=== PATIENT | male | born 1955 | race Caucasian/White ===

== ENCOUNTER 2018-07-20 18:31 | Emergency (ER) | payer MEDICARE, OTHER ==
[2018-07-20] MEDS: KETOROLAC 30 MG INJ IM (22:02)
[2018-07-20] MEDS: ONDANSETRON (ODT) 4 MG TAB ODT (22:02)
[2018-07-20 22:40] LABS: ADD UMIC YES; UR ASCORBIC ACID NEGATIVE (NEGATIVE); UR BILIRUBIN (Dip) NEGATIVE (NEGATIVE); UR BLOOD (Dip) 1+ mg/dL (NEGATIVE); UR CLARITY CLEAR (CLEAR); UR COLOR YELLOW (YELLOW); UR GLUCOSE (Dip) NEGATIVE (NEGATIVE); UR KETONES (Dip) NEGATIVE (NEGATIVE); UR LEUKOCYTE ESTERASE (Dip) NEGATIVE Leu/ul (NEGATIVE); UR MUCUS FEW /HPF (NONE SEEN); UR NITRITE (Dip) NEGATIVE (NEGATIVE); UR RBC 0 /HPF (0-5); UR SPECIFIC GRAVITY (Dip) 1.024 (1.003-1.030); UR TOTAL PROTEIN (Dip) NEGATIVE (NEGATIVE); UR UROBILINOGEN (Dip) 1+ mg/dL (NEGATIVE); UR WBC 1 /HPF (0-5)
== END 2018-07-21 01:24 | disposition left against medical advice (07) ==
LOC: FTE 07-21 01:24
DX: M54.5 Low back pain (principal); I10 Essential (primary) hypertension
CPT/HCPCS: 74018; 81001; 96372; 99284-25

== ENCOUNTER 2018-11-21 14:46 | Emergency (ER) | payer SELFPAY, OTHER, MEDICARE | END 2018-11-21 19:45 | disposition left against medical advice (07) | LOC: E/R 14:46 | DX: Z53.21 Procedure and treatment not carried out due to patient leaving prior to being seen by health care provider (principal) ==